=== PATIENT | female | born 1960 | race Caucasian/White ===

== ENCOUNTER 2018-07-09 11:03 | Emergency (ER) | payer OTHER ==
[~2018-07-09] VITALS: Ht 170.2 cm; Wt 79.4 kg
[2018-07-09] MEDS ORDERED: COZAAR50 MG (11:45)
[2018-07-09] MEDS ORDERED: KETO10TA2 PO (14:16)
[2018-07-09] MEDS ORDERED: NORFLEX100MG PO (14:16)
== END 2018-07-09 14:44 | disposition home or self-care (01) ==
LOC: ER 11:03
DX: M25.511 Pain in right shoulder (principal); M54.2 Cervicalgia

== ENCOUNTER 2018-10-08 08:49 | Emergency (ER) | payer OTHER ==
[~2018-10-08] VITALS: Ht 170.2 cm; Wt 74.8 kg
[~2018-10-08 08:49] MED LIST: COZAAR50 MG; KETO10TA2 PO; NORFLEX100MG PO
== END 2018-10-08 11:12 | disposition home or self-care (01) ==
LOC: ER 08:49
DX: M26.69 Other specified disorders of temporomandibular joint (principal)

== ENCOUNTER 2021-03-19 12:36 | Emergency (ER) | payer OTHER ==
[~2021-03-19] VITALS: Ht 170.2 cm; Wt 83.9 kg
[2021-03-19] MEDS ORDERED: KETO10TA2 PO (15:29)
[2021-03-19] MEDS ORDERED: NORFLEX100MG PO (15:29)
== END 2021-03-19 15:38 | disposition home or self-care (01) ==
LOC: ER 12:36
DX: M25.551 Pain in right hip (principal); G89.11 Acute pain due to trauma